=== PATIENT | female | born 1985 | race African-American/Black ===

== ENCOUNTER 2020-10-18 10:51 | Emergency (ER) | payer SELFPAY ==
[~2020-10-18] VITALS: Ht 154.9 cm; Wt 67.3 kg
[2020-10-18 11:15] VITALS: BP 136/95
--- NOTE | 2020-10-18 12:24 | PHYS DOC ---
Past Medical History Past Surgical History: Additional Past Surgical Histo: 5 C-Sections Smoking Status: Never Smoker Alcohol Use: None General Adult EDM: Chief Complaint: FLU SYMPTOM HPI: HPI: Patient is a 34 year old female who presents the ED today complaining of cough with symptoms including fatigue, symptoms began yesterday after being exposed to COVID-19. Patient is in the ED with the son with similar symptoms she is requesting a Covid test. Review of Systems: Review of Systems: Constitutional: Reports fatigue. Denies fever or chills. [] Eyes: Denies change in visual acuity. [] HENT: Denies nasal congestion or sore throat. [] Respiratory: Denies cough or shortness of breath. [] Cardiovascular: Denies chest pain or edema. [] GI: Denies abdominal pain, nausea, vomiting, bloody stools or diarrhea. [] : Denies dysuria. [] Musculoskeletal: Denies back pain or joint pain. [] Integument: Denies rash. [] Neurologic: Denies headache, focal weakness or sensory changes. [] Psychiatric: Denies depression or anxiety. [] Heart Score: C/O Chest Pain: N/A Risk Factors: Risk Factors: DM, Current or recent (<one month) smoker, HTN, HLP, family history of CAD, obesity. Risk Scores: Score 0 - 3: 2.5% MACE over next 6 weeks - Discharge Home Score 4 - 6: 20.3% MACE over next 6 weeks - Admit for Clinical Observation Score 7 - 10: 72.7% MACE over next 6 weeks - Early Invasive Strategies Physical Exam: PE: Constitutional: Well developed, well nourished, no acute distress, non-toxic appearance. [] HENT: Normocephalic, atraumatic, bilateral external ears normal, oropharynx moist, no oral exudates, nose normal. [] Eyes: PERRLA, EOMI, conjunctiva normal, no discharge. [] Neck: Normal range of motion, no tenderness, supple, no stridor. [] Cardiovascular:Heart rate regular rhythm, no murmur [] Lungs & Thorax: Bilateral breath sounds clear to auscultation [] Abdomen: Bowel sounds normal, soft, no tenderness, no masses, no pulsatile mas ses. [] Skin: Warm, dry, no erythema, no rash. [] Back: No tenderness, no CVA tenderness. [] Extremities: No tenderness, no cyanosis, no clubbing, ROM intact, no edema. [] Neurologic: Alert and oriented X 3, normal motor function, normal sensory function, no focal deficits noted. [] Psychologic: Affect normal, judgement normal, mood normal. [] Current Patient Data: Labs: Laboratory Tests Test 10/18/20 11:20 SARS-CoV-2 Antigen (Rapid) Negative (NEGATIVE) Vital Signs: Vital Signs Date Time Temp Pulse Resp B/P (MAP) Pulse Ox O2 Delivery O2 Flow Rate FiO2 10/18/20 11:15 98.0 95 20 136/95 97 Room Air 98.0 EKG: EKG: [] Radiology/Procedures: Radiology/Procedures: [] Course & Med Decision Making: Course & Med Decision Making Pertinent Labs and Imaging studies reviewed. (See chart for details) This a 34-year-old female patient presented to the ED today requesting COVID-19 test. Patient states she feels fatigued after being exposed to Covid 19 patient yesterday. Rapid Covid test is negative. Discharged home. Will be contacted when PCR is back. Instructed to quarantine herself. Good hand hygiene, mask w earing emphasized. Dandy Disclaimer: Dandy Disclaimer: This electronic medical record was generated, in whole or in part, using a voice recognition dictation system. Departure Departure Impression: Primary Impression: Person under investigation for COVID-19 Disposition: HOME / SELF CARE / HOMELESS Condition: STABLE Referrals: UNKNOWN PCP NAME (PCP) Follow-up with your doctor in 1 week Patient Instructions: Viral Syndrome Additional Instructions: You were tested for COVID-19, the rapid test is negative. The PCR results will come in a couple days. We will call you when your Covid test comes back. Quarantine yourself until then. Maintain good hand hygiene, push fluids. Follow-up with your doctor in 1 week, rest, push fluids. JHONY LAKE APRN Oct 18, 2020 12:24
--- NOTE | 2020-10-19 09:59 | NUR ---
IP: Attempted to contact pt concerning covid results. No answer, left a voicemail to return the call.
--- NOTE | 2020-10-19 10:30 | NUR ---
IP: Informed pt of positive covid test and the need to quarantine for 10 days. Pt verbalized understanding.
== END 2020-10-18 12:35 | disposition home or self-care (01) ==
LOC: ER 10:51
DX: U07.1 COVID-19 (principal)
CPT/HCPCS: 87426; 99283; U0003; U0005